=== PATIENT | female | born 1975 | race Caucasian/White ===

== ENCOUNTER 2017-02-25 17:45 | Emergency (ER) | payer SELFPAY ==
[~2017-02-25 17:45] MED LIST: Sodium Chloride 0.9% 100 ML BAG ONE
[2017-02-25 18:24] LABS: Clarity Hazy (Clear)
[2017-02-25 18:25] LABS: Bilirubin Negative (Negative); Glucose, Urine (Dipstick) Negative (Negative); Leukocyte Negative (Negative); Nitrite Negative (Negative); Protein, Urine (Dipstick) Negative (Neg-Trace); Specific Gravity, Urine 1.015 (1.005-1.030)
[2017-02-25 18:26] LABS: Bacteria/HPF 1+ HPF (None Seen); Blood, Urine Trace (Negative); RBC/HPF 0-3 HPF (0-3); WBC/HPF None Seen HPF (0-3)
[2017-02-25 19:07] LABS: #Basophils 0.1 thou/uL (0.0-0.2); #Eosinphils 0.3 thou/uL (0.0-0.7); #Lymphocytes 1.2 thou/uL (1.20-3.40); #Monocytes 0.5 thou/uL (0.11-0.59); #Neutrophils 4.4 thou/uL (1.40-6.50); %Basophils 1.1 % (0.0-1.0); %Eosinophils 4.7 % (0.0-10.0); %Lymphocytes 18.6 % (21.0-51.0); %Monocytes 7.3 % (0.0-10.0); %Neutrophils 68.2 % (42.0-75.0); Anisocytosis SLIGHT = 6-15 cells (100X) (0-5/hpf); Hemoglobin 9.7 g/dL (12.0-16.0); Hypochromia SLIGHT = 6-15 cells (100X) (0-5/hpf); MDiff Complete? YES; Mean Corpuscular HGB CONC 31.1 g/dL (32.0-36.0); Mean Corpuscular Hemoglobin 22.8 pg (27.0-31.0); Mean Corpuscular Volume 73.5 fl (81.0-99.0); Mean Platelet Volume 7.2 fL (7.4-10.4); Microcytosis SLIGHT = 6-15 cells (100X) (0-5/hpf); PLT Morphology Comment Appears Adequate; Platelet Count 290 thou/uL (130-400); RBC Distribution Width 15.7 % (11.5-14.5); Red Blood Cell (RBC) Count 4.27 mill/uL (4.20-5.40); White Blood Cell (WBC) Count 6.4 thou/uL (4.8-10.8)
[2017-02-25 19:15] LABS: ALT (SGPT) 11 U/L (8-55); AST (SGOT) 14 U/L (5-34); Albumin 4.2 g/dL (3.5-5.0); Alkaline Phosphatase 82 U/L (40-150); Anion Gap 12 mmol/L (10-20); BUN (Urea Nitrogen) 8 mg/dL (7.0-18.7); Bilirubin, Total 0.3 mg/dL (0.2-1.2); Calc. Creatinine Clearance 0 mL/min (70-130); Carbon Dioxide 22 mmol/L (22-29); Chloride 107 mmol/L (98-107); Estimated GFR-MDRD 85; Glucose 126 mg/dL (70-105); Lipase 25 U/L (8-78); Potassium 3.4 mmol/L (3.5-5.1); Protein, Total 7.2 g/dL (6.0-8.3); Sodium 138 mmol/L (136-145)
[2017-02-25] MEDS ORDERED: diphenhydrAMINE HCl 50 MG/ML 1 ML VIAL ONE (21:01)
[2017-02-25] MEDS ORDERED: ceFAZolin Sodium 1 GM VIAL ONE (21:01)
[2017-02-25] MEDS ORDERED: Ondansetron HCl/PF 4 MG/2 ML Vial ONE (21:01)
[2017-02-25] MEDS ORDERED: Ketorolac Tromethamine 30 MG/ML VIAL ONE (21:01)
--- NOTE | 2017-02-25 21:13 | CT ---
CT ABDOMEN WITH CONTRAST CT PELVIS WITH CONTRAST: DATE: 02-25-17 HISTORY: 42-year-old female with upper quadrant pain and right lower quadrant pain. COMPARISON: None available. TECHNIQUE: IV injection of iodinated contrast media: Administered Oral contrast media: Administered FINDINGS: There are multiple noncalcified gallstones and a few calcified gallstones. The gallbladder is disten ded. The gallbladder wall is diffusely thickened and edematous. There is pericholecystic fat strandi ng representing edema. One of the gallstones may be obstructed at the neck of the gallbladder. No biliary ductal dilation. The liver, pancreas, adrenals, spleen, and appendix are normal. There is a small amount of free fluid in the pelvic cavity. No signs of acute colonic diverticulitis. No sma ll bowel dilation. Large number of small bilateral renal cysts, left greater than right. No hydronep hrosis. IMPRESSION: 1. Positive for acute cholecystitis and cholelithiasis. 2. Large number of small bilateral renal cysts. EARLENE Olson POS: YINA
== END 2017-02-25 21:58 | disposition short-term general hospital (02) ==
LOC: MADERS 17:45
DX: K80.00 Calculus of gallbladder with acute cholecystitis without obstruction (principal); D64.9 Anemia, unspecified; J45.909 Unspecified asthma, uncomplicated; F17.210 Nicotine dependence, cigarettes, uncomplicated
CPT/HCPCS: 74177; 80053; 81001; 82150; 83690; 85025; 87086; 96365; 96375; J0690; J1200; J1885; J2405; J7050

== ENCOUNTER 2021-10-30 14:34 | Emergency (ER) | payer SELFPAY ==
[2021-10-30 15:22] LABS: Bilirubin Negative (Negative); Blood, Urine Trace (Negative); Clarity Clear (Clear); Glucose, Urine (Dipstick) Negative (Negative); Ketone, Urine Negative (Negative); Leukocyte Small (Negative); Nitrite Negative (Negative); Pregnancy Test - Urine (BHCG) Negative (Negative); Pregu Control Background? CLEAR/WHITE (CLR/WHITE); Pregu Control Bar Appear? YES (CONTROL BAR); Protein, Urine (Dipstick) Negative (Neg-Trace); Urobilinogen 0.2 mg/dL (Less than 2)
[2021-10-30 15:26] LABS: RBC/HPF 0-3 HPF (0-3)
[2021-10-30 15:27] LABS: Bacteria/HPF Rare-Few HPF (None Seen); Squamous Epithelial 0-3 HPF (0-3)
[2021-10-30] MEDS ORDERED: Dicyclomine 10 MG CAP ONE (15:42)
[2021-10-30] MEDS ORDERED: Lactated Ringer's 1,000 ML ONE (15:42)
[2021-10-30 15:57] LABS: ALT (SGPT) 13 U/L (8-55); AST (SGOT) 15 U/L (5-34); Albumin 4.1 g/dL (3.5-5.0); Alkaline Phosphatase 69 U/L (40-110); Anion Gap 15 mmol/L (10-20); BUN (Urea Nitrogen) 4 mg/dL (7.0-18.7); Bilirubin, Total 0.2 mg/dL (0.2-1.2); Calc. Creatinine Clearance 0 mL/min (70-130); Calcium 8.7 mg/dL (7.8-10.44); Carbon Dioxide 25 mmol/L (22-29); Chloride 102 mmol/L (98-107); Globulin 2.7 g/dL (2.4-3.5); Glucose 85 mg/dL (70-105); Lipase 45 U/L (8-78); Potassium 3.5 mmol/L (3.5-5.1); Protein, Total 6.8 g/dL (6.0-8.3); Sodium 138 mmol/L (136-145)
[2021-10-30 16:02] LABS: #Basophils 0.1 thou/uL (0.0-0.2); #Lymphocytes 0.9 thou/uL (1.20-3.40); #Monocytes 0.4 thou/uL (0.11-0.59); #Neutrophils 3.3 thou/uL (1.40-6.50); %Eosinophils 0.3 % (0.0-10.0); %Lymphocytes 19.5 % (21.0-51.0); %Neutrophils 70.3 % (42.0-75.0); Hemoglobin 10.3 g/dL (12.0-16.0); Mean Corpuscular HGB CONC 28.6 g/dL (32.0-36.0); Mean Corpuscular Volume 80.5 fL (78.0-98.0); Mean Platelet Volume 6.6 fL (7.4-10.4); Platelet Count 357 thou/uL (130-400); RBC Distribution Width 26.1 % (11.5-14.5); Red Blood Cell (RBC) Count 4.47 mill/uL (4.20-5.40); White Blood Cell (WBC) Count 4.8 thou/uL (4.8-10.8)
[2021-10-30 16:17] LABS: Hypochromia SLIGHT = 6-15 cells (100X) (0-5/hpf)
[2021-10-30] MEDS ORDERED: Ibuprofen 800 MG TAB ONE (16:35)
== END 2021-10-30 16:44 | disposition home or self-care (01) ==
LOC: MADERS 14:34
DX: R09.1 Pleurisy (principal); J20.9 Acute bronchitis, unspecified; J06.9 Acute upper respiratory infection, unspecified; D64.9 Anemia, unspecified; F17.210 Nicotine dependence, cigarettes, uncomplicated
CPT/HCPCS: 36415; 71045; 80053; 81003; 81015; 81025; 83605; 83690; 84443; 84484; 85025; 93005; 94760; J7120

== ENCOUNTER 2022-06-30 15:51 | Emergency (ER) | payer SELFPAY ==
[2022-06-30 18:17] LABS: #Basophils 0.1 thou/uL (0.0-0.2); #Eosinphils 0.1 thou/uL (0.0-0.7); #Lymphocytes 1.5 thou/uL (1.20-3.40); #Monocytes 0.4 thou/uL (0.11-0.59); #Neutrophils 3.9 thou/uL (1.40-6.50); %Basophils 1.1 % (0.0-1.0); %Lymphocytes 25.2 % (21.0-51.0); %Monocytes 6.6 % (0.0-10.0); %Neutrophils 66.1 % (42.0-75.0); Anisocytosis MODERATE=16-30 cells (100X) (0-5/hpf); Hemoglobin 7.1 g/dL (12.0-16.0); Hypochromia MODERATE=16-30 cells (100X) (0-5/hpf); MDiff Complete? YES; Mean Corpuscular HGB CONC 27.8 g/dL (32.0-36.0); Mean Corpuscular Hemoglobin 18.9 pg (27.0-31.0); Mean Corpuscular Volume 67.9 fL (78.0-98.0); Mean Platelet Volume 7.8 fL (7.4-10.4); Microcytosis SLIGHT = 6-15 cells (100X) (0-5/hpf); Platelet Count 384 thou/uL (130-400); Platelet Morphology Comment Appears Adequate; RBC Distribution Width 17.2 % (11.5-14.5); Red Blood Cell (RBC) Count 3.76 mill/uL (4.20-5.40); White Blood Cell (WBC) Count 5.9 thou/uL (4.8-10.8)
[2022-06-30 18:18] LABS: ALT (SGPT) Less than 7 U/L (8-55); AST (SGOT) 13 U/L (5-34); Albumin 4.3 g/dL (3.5-5.0); Alkaline Phosphatase 52 U/L (40-110); Anion Gap 14 mmol/L (10-20); BUN (Urea Nitrogen) 9 mg/dL (7.0-18.7); Bilirubin, Total 0.4 mg/dL (0.2-1.2); Calc. Creatinine Clearance 0 mL/min (70-130); Calcium 9.2 mg/dL (7.8-10.44); Carbon Dioxide 24 mmol/L (22-29); Chloride 103 mmol/L (98-107); Estimated GFR 108; Globulin 2.8 g/dL (2.4-3.5); Glucose 91 mg/dL (70-105); Lipase 27 U/L (8-78); Potassium 3.5 mmol/L (3.5-5.1); Protein, Total 7.1 g/dL (6.0-8.3); Sodium 137 mmol/L (136-145)
[2022-06-30 18:23] LABS: Bilirubin Negative (Negative); Blood, Urine Negative (Negative); Clarity Clear (Clear); Glucose, Urine (Dipstick) Negative (Negative); Ketone, Urine Negative (Negative); Leukocyte Negative (Negative); Nitrite Negative (Negative); Protein, Urine (Dipstick) Negative (Neg-Trace); Specific Gravity, Urine 1.015 (1.005-1.030); Urobilinogen 0.2 mg/dL (Less than 2)
[2022-06-30] MEDS ORDERED: Pantoprazole 40 MG VIAL ONE ×2 (18:58→20:43)
[2022-06-30] MEDS ORDERED: Sodium Chloride 0.9% 50 ML ONE (18:58)
[2022-06-30 19:37] LABS: Amphetamine Not Detected (NotDetected); Barbiturates Screen Not Detected (NotDetected); Benzodiazepine Screen Detected (NotDetected); Cocaine Metabolite Screen Not Detected (NotDetected); Medtox Control Line Valid? VALID (VALID); Methadone Not Detected (NotDetected); Methamphetamine Not Detected (NotDetected); Opiate Screen Not Detected (NotDetected); Oxycodone Screen Not Detected (NotDetected); Phencyclidine (PCP) Not Detected (NotDetected); THC/Cannabinoid Screen Not Detected (NotDetected); Tricyclic Screen Not Detected (NotDetected)
[2022-06-30 19:39] LABS: Pregnancy Test - Urine (BHCG) Negative (Negative)
[2022-06-30 19:40] LABS: Pregu Control Background? CLEAR/WHITE (CLR/WHITE); Pregu Control Bar Appear? YES (CONTROL BAR); Specific Gravity 1.015 (1.002-1.036)
[2022-06-30 19:48] LABS: Acetaminophen Less than 10.0 mcg/mL (10.0-30.0); Alcohol Less than 10 mg/dL (Less than 10); Salicylate Less than 8.0 mg/dL (15.0-30.0)
[2022-06-30] MEDS ORDERED: Sodium Chloride 0.9% 100 ML ONE (20:43)
== END 2022-06-30 21:01 | disposition short-term general hospital (02) ==
LOC: MADERS 15:51
DX: D50.0 Iron deficiency anemia secondary to blood loss (chronic) (principal); R10.13 Epigastric pain; R29.700 NIHSS score 0; Z87.891 Personal history of nicotine dependence; Z79.899 Other long term (current) drug therapy
CPT/HCPCS: 71045; 80053; 80306; 80307; 81003; 81025; 82274; 83605; 83690; 83880; 84443; 84484; 85025; 93005; 94760; 96365; 96376; C9113